=== PATIENT | male | born 2000 | race African-American/Black ===

== ENCOUNTER 2021-08-08 01:24 | Emergency (ER) | payer OTHER | END 2021-08-08 04:52 | disposition home or self-care (01) | LOC: CSHERS 01:24 | DX: F10.129 Alcohol abuse with intoxication, unspecified (principal) | CPT/HCPCS: 99284 ==

== ENCOUNTER 2021-12-26 18:20 | Emergency (ER) | payer BC, SELFPAY ==
[2021-12-26 19:09] LABS: #Basophils 0.1 10x3/uL (0.0-0.2); #Eosinphils 0.2 10x3/uL (0.0-0.5); #Monocytes 0.6 10x3/uL (0.0-1.1); #Neutrophils 1.8 10x3/uL (1.5-8.4); %Basophils 1.4 % (0.0-2.0); %Eosinophils 3.8 % (0.0-6.0); %Lymphocytes 46.8 % (18.0-47.0); %Monocytes 11.3 % (0.0-10.0); %Neutrophils 36.5 % (40.0-75.0); Hemoglobin 16.3 g/dL (13.5-17.5); Mean Corpuscular HGB CONC 36.2 g/dL (32.0-36.0); Mean Corpuscular Hemoglobin 29.1 pg (27.0-33.0); Mean Corpuscular Volume 80.4 fl (81.2-95.1); Mean Platelet Volume 10.8 fl (7.4-10.4); Platelet Count 224 10x3/uL (150-450); RBC Distribution Width 11.5 % (11.5-14.5)
== END 2021-12-26 19:49 | disposition home or self-care (01) ==
LOC: CSHERS 18:20
DX: K62.5 Hemorrhage of anus and rectum (principal)
CPT/HCPCS: 36415; 85025; 99283

== ENCOUNTER 2022-06-14 17:55 | Emergency (ER) | payer BC, OTHER ==
[2022-06-14 19:19] LABS: SARS-CoV-2 NAA Rapid Test Not Detected (NotDetected)
== END 2022-06-14 20:52 | disposition home or self-care (01) ==
LOC: CSHERS 17:55
DX: J06.9 Acute upper respiratory infection, unspecified (principal); Z20.822 Contact with and (suspected) exposure to COVID-19
CPT/HCPCS: 87081; 87430; 99283